=== PATIENT | male | born 1955 | race Caucasian/White ===

== ENCOUNTER → 2018-05-22 10:53 | Outpatient (CLI) | payer BC, SELFPAY ==
--- NOTE | 2018-05-22 11:00 | EKG12_ITS ---
Test Reason : HYPERTENSION Blood Pressure : / mmHG Vent. Rate : 080 BPM Atrial Rate : 080 BPM P-R Int : 142 ms QRS Dur : 108 ms QT Int : 360 ms P-R-T Axes : 065 084 067 degrees QTc Int : 415 ms Normal sinus rhythm Nonspecific ST and T wave abnormality Abnormal ECG Confirmed by KATIE FREEMAN, ARSENIO ([id number]), photograph editor TIERNEY ROUSE ([id number]) on 05/24/2018 12:03:58 PM Referred By: Octavio Sow Confirmed By:ARSENIO WILSON MD
--- NOTE | 2018-05-22 11:05 | RAD_ITS ---
STUDY: X-RAY - LEFT KNEE REASON FOR EXAM: Male, 62 years old. Knee pain for 8 months. TECHNIQUE: 2 view(s) of the knee. COMPARISON: None. FINDINGS: Normal visualized distal femur. Normal visualized proximal tibia and fibula. Normal proximal tibiofibular articulation. There is no acute fracture, dislocation or destructive osseous pathology. There is mild degenerative arthrosis of the medial femorotibial compartment. Normal lateral femorotibial compartment. There is mild degenerative arthrosis of the patellofemoral articulation. There is no demonstrated joint effusion. The soft tissue structures are unremarkable. RAD/Knee 1 or 2 Views IMPRESSION: Degenerative arthrosis. Electronically Signed: Sly Hu DO at 17:04 EDT Tel [phone], Service support ,
== END ==
PROVIDERS: Family Provider Family Medicine; PCP Family Medicine; Visit Provider Nurse Practitioner Family
DX: M25.562 Pain in left knee (principal); I10 Essential (primary) hypertension
CPT/HCPCS: 73560; 93005

== ENCOUNTER → 2018-05-31 10:11 | Outpatient (CLI) | payer BC, SELFPAY ==
[2018-05-31 12:32] LABS: Anion Gap 10 (5-15); BUN 17 mg/dL (7-18); BUN/Creat Ratio 14.7 RATIO (10-20); Chloride 103 mmol/L (98-107); Creatinine, Serum 1.16 mg/dL (0.70-1.30); EST Glomerular Filtration Rate 67 mL/min (>60); Est Glom Filt Rate - Afr Amer 81 mL/min (>60); Glucose 128 mg/dL (74-106); Potassium 4.2 mmol/L (3.5-5.1); Sodium Level 139 mmol/L (136-145)
== END ==
PROVIDERS: Family Provider Family Medicine; PCP Family Medicine; Visit Provider Nurse Practitioner Family
DX: I10 Essential (primary) hypertension (principal)
CPT/HCPCS: 36415; 80048

== ENCOUNTER → 2018-07-17 15:18 | Outpatient (CLI) | payer BC, SELFPAY ==
[2018-07-17 18:18] LABS: Hemoglobin A1c 7.1 % (4.2-6.3)
== END ==
PROVIDERS: Family Provider Family Medicine; PCP Family Medicine; Referring Provider Family Medicine; Visit Provider Family Medicine
DX: R73.09 Other abnormal glucose (principal)
CPT/HCPCS: 36415; 83036

== ENCOUNTER → 2020-01-08 15:16 | Outpatient (CLI) | payer MEDICARE, OTHER, SELFPAY ==
[2020-01-08 14:50] VITALS: BMI 27.3
[2020-01-08 17:11] LABS: Color, Urine Yellow (Yellow); Glucose, Dipstick 1000 mg/dl (Normal); Ketone-Dipstick 15 mg/dl (Negative); Leukocyte Esterase-Dipstick Negative /ul (Negative); Nitrite-Dipstick Negative (Negative); Occult Blood-Urine Negative /ul (Negative); Protein-Dipstick Negative (Negative); Specific Gravity, Urine 1.015 (1.002-1.030); Urine Bilirubin Dipstick Negative (Negative); Urine Clarity Clear (Clear); Urine Urobilinogen Normal (Normal)
[2020-01-08 17:23] LABS: ALB/GLOB Ratio 0.7 RATIO (0.9-2.4); AST(SGOT) 23 U/L (15-37); Alanine Aminotransfer ALT/SGPT 45 U/L (16-61); Albumin, Serum 3.7 g/dL (3.2-5.0); Alkaline Phosphatase 132 U/L (45-117); Anion Gap 13 (5-15); BUN 26 mg/dL (7-18); BUN/Creat Ratio 15.8 RATIO (10-20); Calcium,Total 10.2 mg/dL (8.5-10.1); Chloride 84 mmol/L (98-107); Creatinine, Serum 1.65 mg/dL (0.70-1.30); EST Glomerular Filtration Rate 45 mL/min (>60); Est Glom Filt Rate - Afr Amer 54 mL/min (>60); Glucose 640 mg/dL (74-106); Microalbumin,Random Urine 10.3 mg/L (NO RANGE EST.); Microalbumin:Creatinine Ratio 35.4 mg/g CRE (<30 mg/g CRE); Potassium 4.3 mmol/L (3.5-5.1); Protein, Total 8.7 g/dL (6.4-8.2); Sodium Level 124 mmol/L (136-145)
== END ==
PROVIDERS: PCP Family Medicine; Referring Provider Family Medicine; Visit Provider Family Medicine
DX: E11.65 Type 2 diabetes mellitus with hyperglycemia (principal)
CPT/HCPCS: 36415; 80053; 81002; 82043; 82570

== ENCOUNTER → 2020-01-09 10:06 | Outpatient (CLI) | payer MEDICARE, OTHER, SELFPAY ==
[2020-01-08 14:50] VITALS: BMI 27.3
[2020-01-09 12:43] LABS: Anion Gap 9 (5-15); BUN 29 mg/dL (7-18); Calcium,Total 9.9 mg/dL (8.5-10.1); Chloride 87 mmol/L (98-107); Creatinine, Serum 1.53 mg/dL (0.70-1.30); EST Glomerular Filtration Rate 49 mL/min (>60); Est Glom Filt Rate - Afr Amer 59 mL/min (>60); Glucose 491 mg/dL (74-106); Potassium 3.9 mmol/L (3.5-5.1); Sodium Level 124 mmol/L (136-145)
== END ==
PROVIDERS: PCP Family Medicine; Referring Provider Nurse Practitioner Family; Visit Provider Nurse Practitioner Family
DX: E11.65 Type 2 diabetes mellitus with hyperglycemia (principal)
CPT/HCPCS: 36415; 80048

== ENCOUNTER → 2020-01-10 10:30 | Outpatient (CLI) | payer MEDICARE, OTHER, SELFPAY ==
[2020-01-10 09:44] VITALS: BMI 27.6
[2020-01-10 12:30] LABS: Anion Gap 8 (5-15); BUN 27 mg/dL (7-18); BUN/Creat Ratio 19.9 RATIO (10-20); Calcium,Total 9.5 mg/dL (8.5-10.1); Chloride 91 mmol/L (98-107); Creatinine, Serum 1.36 mg/dL (0.70-1.30); EST Glomerular Filtration Rate 56 mL/min (>60); Est Glom Filt Rate - Afr Amer 67 mL/min (>60); Glucose 399 mg/dL (74-106); Potassium 3.9 mmol/L (3.5-5.1); Sodium Level 127 mmol/L (136-145)
== END ==
PROVIDERS: PCP Family Medicine; Referring Provider Nurse Practitioner Family; Visit Provider Nurse Practitioner Family
DX: E11.65 Type 2 diabetes mellitus with hyperglycemia (principal)
CPT/HCPCS: 36415; 80048

== ENCOUNTER → 2020-01-23 13:19 | Outpatient (CLI) | payer MEDICARE, OTHER, SELFPAY ==
[2020-01-16 11:51] VITALS: BMI 27.3
[2020-01-23 14:02] LABS: Anion Gap 8 (5-15); BUN 9 mg/dL (7-18); BUN/Creat Ratio 9.7 RATIO (10-20); Calcium,Total 9.1 mg/dL (8.5-10.1); Chloride 103 mmol/L (98-107); Creatinine, Serum 0.93 mg/dL (0.70-1.30); EST Glomerular Filtration Rate 86 mL/min (>60); Est Glom Filt Rate - Afr Amer 104 mL/min (>60); Glucose 154 mg/dL (74-106); Potassium 4.5 mmol/L (3.5-5.1); Sodium Level 136 mmol/L (136-145)
== END ==
PROVIDERS: PCP Family Medicine; Referring Provider Family Medicine; Visit Provider Family Medicine
DX: Z71.3 Dietary counseling and surveillance (principal); E11.65 Type 2 diabetes mellitus with hyperglycemia
CPT/HCPCS: 36415; 80048; G0108

== ENCOUNTER 2020-01-27 17:30 | Outpatient (RCR) | payer MEDICARE, OTHER, SELFPAY ==
[2020-01-10 11:50] VITALS: BMI 27.3
[2020-01-16 11:51] VITALS: BMI 27.3
== END 2020-01-27 23:59 | disposition home or self-care (01) ==
LOC: DC 17:30
PROVIDERS: PCP Family Medicine; Visit Provider Nurse Practitioner Family
DX: Z71.3 Dietary counseling and surveillance (principal); E11.65 Type 2 diabetes mellitus with hyperglycemia
CPT/HCPCS: 97802; G0108

== ENCOUNTER → 2020-04-09 10:23 | Outpatient (CLI) | payer MEDICARE, OTHER, SELFPAY ==
[2020-04-09 10:04] VITALS: BMI 27.3
[2020-04-09 12:44] LABS: Anion Gap 7 (5-15); BUN 13 mg/dL (7-18); Calcium,Total 9.6 mg/dL (8.5-10.1); Chloride 107 mmol/L (98-107); Creatinine, Serum 0.93 mg/dL (0.70-1.30); EST Glomerular Filtration Rate 87 mL/min (>60); Est Glom Filt Rate - Afr Amer 105 mL/min (>60); Glucose 108 mg/dL (74-106); Potassium 4.2 mmol/L (3.5-5.1); Sodium Level 140 mmol/L (136-145)
[2020-04-09 12:54] LABS: Hemoglobin A1c 6.2 % (3.8-5.6)
== END ==
PROVIDERS: PCP Family Medicine; Referring Provider Family Medicine; Visit Provider Family Medicine
DX: I10 Essential (primary) hypertension (principal); E11.65 Type 2 diabetes mellitus with hyperglycemia
CPT/HCPCS: 36415; 80048; 83036

== ENCOUNTER → 2020-10-06 12:05 | Outpatient (CLI) | payer MEDICARE, OTHER, SELFPAY ==
[2020-10-06 11:39] VITALS: BMI 26.0
[2020-10-06 15:40] LABS: AST(SGOT) 21 U/L (15-37); Alanine Aminotransfer ALT/SGPT 43 U/L (16-61); Albumin, Serum 3.9 g/dL (3.2-5.0); Alkaline Phosphatase 95 U/L (45-117); Anion Gap 6 (5-15); BUN 10 mg/dL (7-18); BUN/Creat Ratio 9.7 RATIO (10-20); Calcium,Total 9.6 mg/dL (8.5-10.1); Chloride 104 mmol/L (98-107); Cholesterol 167 mg/dL (200); Creatinine, Serum 1.03 mg/dL (0.70-1.30); EST Glomerular Filtration Rate 77 mL/min (>60); Est Glom Filt Rate - Afr Amer 93 mL/min (>60); Globulin 4.1 g/dL (2.2-4.2); Glucose 154 mg/dL (74-106); High Density Lipoprotein 44 mg/dL; Potassium 4.5 mmol/L (3.5-5.1); Sodium Level 138 mmol/L (136-145); Triglycerides 138 mg/dL; Very Low Density Lipoprotein 28 mg/dL (5-40)
[2020-10-06 16:00] LABS: Microalbumin,Random Urine 10.6 mg/L (NO RANGE EST.)
== END ==
PROVIDERS: PCP Family Medicine; Referring Provider Family Medicine; Visit Provider Family Medicine
DX: E11.65 Type 2 diabetes mellitus with hyperglycemia (principal)
CPT/HCPCS: 36415; 80053; 80061; 82043; 82570

== ENCOUNTER → 2020-11-25 15:50 | Outpatient (CLI) | payer MEDICARE, OTHER, SELFPAY ==
[2020-11-17 10:01] VITALS: BMI 24.7
--- NOTE | 2020-11-25 15:52 | CT_ITS ---
We are attempting to reach an attending provider to discuss findings. An addendum with communication details will be sent when the communication is complete. STUDY: CT ABDOMEN AND PELVIS WITH CONTRAST REASON FOR EXAM: Male, 65 years old. General abdomen pain, 30lb weight loss x 1 month, decreased appetite, recently diagnosed diabetes. Prior hernia repair x 2, hypertension, smoker, COPD. RADIATION DOSAGE (If Supplied By Facility): CTDIvol = ( 9.95 ) mGy, DLP = ( 869.79 ) mGycm TECHNIQUE: Transaxial images were obtained from the dome of the diaphragm to the symphysis pubis with oral contrast. Oral and amp; IV Readi-CAT and amp; 100mL Isovue-300 was administered. Sagittal and coronal images were reconstructed. Individualized dose optimization techniques were used for this CT. COMPARISON: None. FINDINGS: The visualized lung bases are unremarkable. The visualized portions of the heart are within normal limits. Innumerable masses of decreased attenuation with peripheral enhancement throughout the liver consistent with widespread metastatic disease or less likely multifocal hepatocellular carcinoma. The largest lesion is in the lateral segment left lobe liver measures 3.5 cm in diameter. The largest lesion in the right lobe is a necrotic mass measuring 2 cm in the anterior segment the right lobe. The gallbladder is contracted. Normal spleen. There is enlargement of the tail of the pancreas containing a 3 x 6 cm oval necrotic mass most worrisome for pancreatic carcinoma. Stranding of the surrounding fat. There is a 3 cm oval filling defect within the portal vein worrisome for thrombus. 4 enhancement is seen within the left portal vein which may be thrombosed as well. Normal bilateral adrenal glands. Normal right kidney. Normal left kidney. Normal visualized stomach. Normal small intestine. Normal colon. The appendix is visualized and appears normal. Normal abdominal aorta. Normal inferior vena cava. Normal retroperitoneum. Normal urinary bladder. Normal abdominal wall. Normal osseous structures. CT/Abdomen/Pelvis WITH Contrast IMPRESSION: Suspect pancreatic carcinoma of the body and tail of the pancreas with hepatic metastases. Correlation with PET CT scan may be useful. Furthermore, suspect portal vein thrombosis which may be tumor thrombus. Electronically Signed: Narciso Cruz MD at 16:31 EST Tel , Service support ,
[2020-11-25 16:11] LABS: CREATININE FINGERSTICK 1.2 mg/dL (0.70-1.30); EGFR FINGERSTICK > 60.0000 mL/min (>60)
== END ==
PROVIDERS: PCP Family Medicine; Referring Provider Family Medicine; Visit Provider Family Medicine
DX: R10.9 Unspecified abdominal pain (principal)
CPT/HCPCS: 74177; Q9967

== ENCOUNTER 2020-12-03 12:26 | Emergency (ER) | payer MEDICARE, OTHER, SELFPAY ==
[2020-12-03] VITALS (7 sets, daily range): BP systolic 91–116; BP diastolic 56–94; PULSE 99–105; RESP 21–24; TEMP 36.4; O2SAT 98–100; BMI 25.4; BMI 26.9
[2020-12-03 12:42] LABS: Absolute Lymphocyte Count 2.54 X10^3/uL (0.83-4.51); Absolute Neutrophil Count 14.5 X10^3/uL (2.0-7.7); Basophil# 0.06 X10^3/uL; Basophil% 0.3 % (0-1); Eosinophil# 0.14 X10^3/uL; Eosinophils% 0.7 % (0-5); Hemoglobin 6.1 g/dL (13.0-16.5); Lymphocyte # 2.54 X10^3/ul (4.0); Lymphocyte % 13.1 % (19-41); Mean Corp Hgb Conc 33.9 g/dL (32-36); Mean Corpuscular Hgb 31.3 pg (27.0-32.0); Mean Corpuscular Volume 92.3 fL (80-94); Monocyte# 1.96 X10^3/uL; Monocyte% 10.1 % (0-10); NRBC Flagged by Analyzer 0 % (0-5); Neutrophil # 14.51 X10^3/uL (2.7-7.7); Neutrophil % 74.7 % (47-70); POSITIVE DIFFERENTIAL YES; Platelet Count 210 K/mm3 (150-450); RBC Distribution Width CV 14.8 % (11.6-14.6); RBC Distribution Width SD 49.2 fl (35.1-43.9); Red Blood Count 1.95 M/mm3 (4.6-6.2); White Blood Count 19.4 K/mm3 (4.4-11.0)
[2020-12-03 12:44] LABS: Differential Indicated SCAN CRITERIA MET
[2020-12-03 12:55] LABS: ALB/GLOB Ratio 0.5 RATIO (0.9-2.4); AST(SGOT) 68 U/L (15-37); Alanine Aminotransfer ALT/SGPT 68 U/L (16-61); Albumin, Serum 2.1 g/dL (3.2-5.0); Alkaline Phosphatase 439 U/L (45-117); Anion Gap 6 (5-15); BUN 35 mg/dL (7-18); Calcium,Total 8.3 mg/dL (8.5-10.1); Chloride 99 mmol/L (98-107); Creatinine, Serum 1.67 mg/dL (0.70-1.30); EST Glomerular Filtration Rate 44 mL/min (>60); Est Glom Filt Rate - Afr Amer 53 mL/min (>60); Estimated Creatinine Clearance 42.92 ml/min; Globulin 4.1 g/dL (2.2-4.2); Glucose 202 mg/dL (74-106); Potassium 3.9 mmol/L (3.5-5.1); Protein, Total 6.2 g/dL (6.4-8.2); Sodium Level 133 mmol/L (136-145)
--- NOTE | 2020-12-03 13:06 | ED.RN ---
1000 ML NORMAL SALINE ON PRESSURE BAG STARTED AT 1236. TRAUMA BLOOD STARTED INFUSING AT 1245, FIRST UNIT INFUSED AT 1259, SECOND UNIT STARTED AT 1300.
[2020-12-03 13:13] LABS: International Normalized Ratio 1.6; Prothrombin Time (Protime)PT. 18.8 SECONDS (11.7-14.9)
[2020-12-03 13:14] LABS: Partial Thromboplast Time 28.6 Seconds (24.1-36.2)
--- NOTE | 2020-12-03 13:17 | ED.VIS.GEN ---
History of Present Illness Chief Complaint: GI Bleed Informant: Patient Narrative: 65-year-old male presents with concern for intra-abdominal hemorrhage. Patient had liver biopsy done by radiology this morning. Became hypotensive. Found to have intra-abdominal hemorrhage on repeat CT. Patient brought to ED for management. Patient is complaining of abdominal pain as well as lightheadedness. Patient found to have pancreatic mass approximately 2 weeks ago. Biopsy was to further diagnosis is mass and metastasis. Patient is not on anticoagulation. Past Medical History - Allergies and Home Meds Allergies/Adverse Reactions: Allergies No Known Allergies Allergy (Verified 11/26/20 15:43) Primary Care Physician: Best Horowitz DO [Primary Care Provider] - Prior records reviewed: Yes Past Medical History: - - HTN, DMII, Pancreatic mass Surgical History: noncontributory Lives: Spouse/ Significant Other Smoking Status: Current every day smoker Alcohol: None Drugs: None Review of Systems General: Denies: Chills, Fever, Sweats Eyes: Denies: Visual changes - bilaterally, Diplopia ENT: Denies: Rhinorrhea, Sore throat Cardiovascular: Denies: Chest pain, Palpitations Respiratory: Denies: Dyspnea, Cough, Dyspnea on exertion Gastrointestinal: Reports: Abdominal pain. Denies: Nausea, Vomiting, Diarrhea, Melena, Hematochezia Genitourinary: Denies: Dysuria, Hematuria, Frequency Musculoskeletal: Denies: Back pain, Extremity Pain Skin: Denies: Rash, Wounds Neurological: Reports: Weakness. Denies: Headache, Numbness Physical Exam Vital Signs/Narrative: Vital Signs Temp Pulse Resp BP Pulse Ox 12/03/20 12:59 99 23 H 109/57 L 98 12/03/20 12:47 103 H 24 H 106/59 L 100 12/03/20 12:35 103 H 24 H 110/63 100 12/03/20 12:33 102 H 22 H 106/94 H 98 12/03/20 12:32 97.5 F L 102 H 22 H 91/58 L 98 Inital Vital Signs reviewed: Yes General: Well nourished, Well developed, No Acute Distress Head: Normocephalic, Atraumatic Eyes: Perrl, EOMI ENT: Moist mucous membranes, No rhinorrhea Neck: Supple, Nontender Cardiovascular: Regular rate, Regular rhythm, No murmurs Respiratory: No distress, CTA bilaterally, Chest nontender Abdomen: Soft, Nondistended, Normal bowel sounds, - - TTP of the abdomen without rigidity. Back: Nontender, Normal Inspection Extremities: Nontender, No edema Skin: Normal color, No rash Neurological: Alert, Oriented x3, Cranial nerves II-XII grossly intact, Normal Strength, Normal Sensation Psychological: Normal affect, Normal Mood Diagnostic/Tx/Re-eval - Medical Decision Making Appears pale and is initially hypotensive and tachycardic. Trauma blood was ordered initially. 2 units will be given. Spoke with surgeon on-call Dr. Cavazos who feels a likely need interventional radiology. Spoke with [facility] and Dr. Perera who is on for trauma surgery who accepts the patient for emergent intervention. Patient will be sent by helicopter. Patient did receive the 2 units of packed red blood cells and blood pressure improved to approximately 110 systolic. Patient is feeling somewhat improved. CBC was returned prior to their transfer which a drop approximately 3 g from 7 days ago. Critical but stable condition upon transfer. Impression: 1. Intra-abdominal hemorrhage 2. 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
[2020-12-04 09:34] LABS: Pathologist Review Reviewed
== END 2020-12-03 13:35 | disposition short-term general hospital (02) ==
PROVIDERS: Emergency Provider Emergency Medicine; PCP Family Medicine
DX: R58 Hemorrhage, not elsewhere classified (principal); C78.7 Secondary malignant neoplasm of liver and intrahepatic bile duct; C25.1 Malignant neoplasm of body of pancreas; I10 Essential (primary) hypertension; E11.9 Type 2 diabetes mellitus without complications; M19.90 Unspecified osteoarthritis, unspecified site; F17.200 Nicotine dependence, unspecified, uncomplicated; Z79.82 Long term (current) use of aspirin; Z79.84 Long term (current) use of oral hypoglycemic drugs; Z79.899 Other long term (current) drug therapy
CPT/HCPCS: 47000; 77012; 74176; 80053; 82962; 85025; 85610; 85730; 86850; 86900; 86901; 86920; 86922; 88172; 88305; 88309; 88313; 88341; 88342; 99155; 99156; 99285; J7030; J7040; P9016; A4216

== ENCOUNTER → 2020-12-03 | Outpatient (CLI) | payer MEDICARE, OTHER, SELFPAY ==
[2020-11-26 15:45] VITALS: BMI 25.7
[2020-12-03] VITALS (12 sets, daily range): BP systolic 68–132; BP diastolic 52–89; PULSE 93–112; RESP 14–30; TEMP 36.6; O2SAT 93–100; BMI 25.4
--- NOTE | 2020-12-03 | IMM_PTH ---
PATIENT: LILLY GONZALEZ LOC: CT U#:[id number] AGE/SX: 65/M ROOM: RE12/03/[address]: Dr. Rajesh Barton MD : 1955 BED: DIS: 12/03/2020 SPEC #: [id number] RECD: 12/04/20 08:58 STATUS: SOURavi REQ #: [id number] BRYANNA: 12/03/20 00:[address]: Rajesh Barton DEPT: IMMUNOHISTOCHEMISTRY RECD BY: Geno Soares ENTERED: 12/04/20 09:00 SP TYPE: IMMUNO OTHR DR: Dr. Best Horowitz DO Tissues: Liver, NOS Procedures: RCC (add) NAPSIN A (add) CK20 (add) CK5-6 (add) CK7 (add) CK8 (add) HEP PAR (add) TTF1 (add) Pankeratin (initial) P40 (add) PSAP (add) PHYSICIAN & [address] [address] SPECIMEN INFORMATION: Tissue Source: Liver, CT-guided biopsy Clinical Info: Pancreatic mass with liver mets Specimen Number: [id number] CPT code: 30078, 34216 x10 METHODOLOGY: Deparaffinized sections of prefer/formalin-fixed tissue or PAP/DQ stained slides are incubated with monoclonal/polyclonal antibodies/oligonucleotide probes. Localization is made via biotin free immunoperoxidase method. Appropriate controls are performed and reacted as expected. Results on target cell population are indicated in the following table: RESULTS: ANTIBODY / CLONE RESULT AE1-3 (AE1/AE3/PCK26) positive CK7 (OV-TL12/30) positive CK8 (86vkzrU08) positive CK20 (KS20.8) negative TTF-1 (8G7G3/1) negative Napsin A (Rabbit Polyclonal) positive HepPar (OCh1E5) negative RCC (PN-15) negative PSAP (PASE/4LJ) negative CK5-6 (D5 & 1684) negative P40 (BC28) negative These tests were developed and their performance characteristics determined by [facility]. They may not have been cleared or approved by the U.S. Food and Drug Administration. The FDA has determined that such clearance or approval is not necessary. The above immunohistochemical/dualISH markers are ordered and reviewed by the Pathologist. INTERPRETATION: Liver, CT-guided biopsy: Consistent with metastatic mucinous adenocarcinoma. WILLIAMS:rob 12/04/2020 Comment: IHC profile is compatible with clinical impression of pancreatic primary.
--- NOTE | 2020-12-03 08:29 | CT_ITS ---
PROCEDURE: CT-GUIDED CORE BIOPSY OF A LIVER MASS. CLINICAL HISTORY: Male, 65 years old. LIVER BX Individualized dose optimization techniques were used for this CT. CT guidance CONSENT: The risks, benefits and alternatives to the procedure were explained to the patient, and the patient agreed to the procedure and signed the consent. SEDATION: Intermittent the intravenous and demonstration of Versed and fentanyl by nursing staff under continuous cardiopulmonary monitoring. 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 PROCEDURE/TECHNIQUE: The risks, benefits, and alternatives to the procedure were explained to patient, and the patient agreed to the procedure and signed a consent form for the procedure. A timeout was performed to confirm the patient''s identity, the type of procedure, to be performed and the site of entry. Patient was positioned supine on the CT scan table. Under CT guidance using sterile technique and after infiltration of the skin and subcutaneous soft tissues with 40 mL of lidocaine 1% an 18-gauge core biopsy was introduced in a liver mass previously described.Multiple core samples were obtained and were placed with in formalin solution and sent to the lab for evaluation. Touch prep slides were examined by the pathologist at the procedure. FINDINGS: Successful CT-guided core biopsy of liver mass. CT/Biopsy/Inj or Needle Placement IMPRESSION: Successful CT-guided core biopsy of the liver mass. Electronically Signed: Arlette Herrera MD at 3:54 EST Tel , Service support ,
--- NOTE | 2020-12-03 10:00 | ASPIGT_PTH ---
PATIENT: LILLY GONZALEZ LOC: CT U#:[id number] AGE/SX: 65/M ROOM: RE12/03/[address]: Dr. Rajesh Barton MD : 1955 BED: DIS: 12/03/2020 SPEC #: [id number] RECD: 12/03/20 10:30 STATUS: BRIGIDA REJerry #: [id number] BRYANNA: 12/03/20 10:[address]: Rajesh Barton DEPT: SURGICAL PATHOLOGY RECD BY: Isatu Austin ENTERED: 12/03/20 11:39 SP TYPE: ASP RAD OTHR DR: Dr. Best Horowitz, DO Tissues: Pancreas, NOS Procedures: FNA Specimen Adequacy Special Stain Group II Surgery Specimen Level IV Surgery Specimen Level Imprint (control) HEADER OPERATION: CT-guided liver biopsy PRE-OP DIAGNOSIS: Pancreatic mass with liver mets TISSUE SUBMITTED: CT-guided core biopsy, liver mass MICROSCOPIC DIAGNOSIS Liver mass, CT-guided core biopsy: Consistent with metastatic mucinous adenocarcinoma. See comment. WILLIAMS:rob 12/04/2020 COMMENT The specimen is evaluated at the time of biopsy by Dr. Lozano. Immediate Evaluation = Malignant cells derived from non-small cell carcinoma. Immunohistochemistry ([id number]) supports the above diagnosis and compatible with the clinical impression of pancreatic primary. Molecular studies on the tumor can be performed if clinically indicated. Please notify the laboratory if they are needed. Correlation with clinical, radiologic findings and appropriate follow up are necessary. MICROSCOPIC DESCRIPTION Slides are reviewed. GROSS DESCRIPTION Received in fixative is one container labeled with the patient's name and designated liver, CT-guided core biopsy. The specimen consists of multiple elongated fragments of prado soft tissue that in aggregate measure 2.5 x 1 x 0.1 cm. The specimen is totally submitted in one cassette. Four touch imprints are prepared at the time of core biopsy. / WILLIAMS:rob 12/03/20 TC:0 CPT: 69582, 07524
[2020-12-03] MEDS: 0.9% Normal Saline 500 ML IV.SOLN. (10:33)
[2020-12-03] MEDS: fentaNYL 100 MCG/2 ML Ampul IV (10:34)
[2020-12-03] MEDS: Midazolam 2 MG/2 ML Syringe IV (10:36)
--- NOTE | 2020-12-03 12:02 | NURSING ---
1150 pt sat up higher in bed now but then leaned to rt side and became quiet and unresponsive or somnolent acting with pallor obs. bp when sat up was 83/52. pt layed flat and went to get glucometer for blood sugar check. when came back to [place] pt more alert and talkative now while laying flat. iv ns up and running wide open. 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 abd remains unchanged and softly rounded as before. no change in drng from mid upper abd opsite dressing.
--- NOTE | 2020-12-03 12:03 | CT_ITS ---
STUDY: CT ABDOMEN AND PELVIS WITHOUT CONTRAST REASON FOR EXAM: Male, 65 years old. POST BIOPSY severe hypotension after biopsy. RADIATION DOSAGE (If Supplied By Facility): CTDIvol = ( 7.52 ) mGy, DLP = ( 368.78 ) mGycm TECHNIQUE: Transaxial images were obtained from the dome of the diaphragm to the symphysis pubis without oral contrast, and without intravenous contrast. Sagittal and coronal images were reconstructed. Individualized dose optimization techniques were used for this CT. COMPARISON: None. FINDINGS: The visualized lung bases are unremarkable. The visualized portions of the heart are within normal limits. Status post liver biopsy. There is moderate amount of free fluid in the abdomen estimated at 300 to 500 cc consistent with hemorrhage. Innumerable masses of decreased attenuation throughout the liver consistent with widespread metastatic disease or less likely multifocal hepatocellular carcinoma. The largest lesion is in the lateral segment left lobe liver measures 3.5 cm in diameter. The largest lesion in the right lobe is a necrotic mass measuring 2 cm in the anterior segment the right lobe. The gallbladder is contracted. Normal spleen. There is enlargement of the tail of the pancreas containing a 3 x 6 cm oval necrotic mass most worrisome for pancreatic carcinoma. Normal bilateral adrenal glands. Normal right kidney. Normal left kidney. Normal visualized stomach. Normal small intestine. Normal colon. The appendix is visualized and appears normal. Normal abdominal aorta. Normal inferior vena cava. Normal retroperitoneum. Normal urinary bladder. Normal abdominal wall. Normal osseous structures. CT/Abdomen/Pelvis without Cont IMPRESSION: Stable pancreatic carcinoma of the body and tail of the pancreas with hepatic metastases. Status post liver biopsy. There is moderate amount of free fluid in the abdomen estimated at 300 to 500 cc consistent with hemorrhage. Electronically Signed: Arlette Herrera MD at 14:27 EST Tel , Service support ,
[2020-12-03 12:10] LABS: Bedside Glucose 172 mg/dL (70-110)
--- NOTE | 2020-12-03 12:49 | NURSING ---
1200 report obtained from Magi RN, In the last 5 minutes patient sat up in bed and change in loc, blood sugar checked 172, at this time patient is unreponsive to normal voice and stimulation, head of bed lowered to flat, color is pale, skin is clammy and cool, iv fluids hung at wide open. dr dimas notified , stat ct scan on abd pelvis obtained, er notified of patient status, informed of decision to transfer pateint to ER to be evlauated, Dr. Dimas ordered transfered to ER.. pt is slightly more responsive to movement, was able to move over to ct scan bed for scan, and also opened eyes.
== END | disposition home or self-care (01) ==
LOC: CT 08:19
PROVIDERS: PCP Family Medicine; Referring Provider Internal Medicine Medical Oncology; Visit Provider Internal Medicine Medical Oncology
DX: C78.7 Secondary malignant neoplasm of liver and intrahepatic bile duct (principal); C25.1 Malignant neoplasm of body of pancreas; I10 Essential (primary) hypertension; E11.9 Type 2 diabetes mellitus without complications; M19.90 Unspecified osteoarthritis, unspecified site; Z79.84 Long term (current) use of oral hypoglycemic drugs; Z79.82 Long term (current) use of aspirin; Z79.899 Other long term (current) drug therapy
CPT/HCPCS: 47000; 77012; 74176; 82962; 88172; 88305; 88309; 88313; 99155; 99156; J7030; J7040; A4216